=== PATIENT | male | born 1960 | race African-American/Black ===

== ENCOUNTER 2024-01-30 14:56 | Emergency (ER) | payer OTHER, MEDICAID ==
[~2024-01-30] VITALS: Ht 195.6 cm; Wt 113.1 kg
[2024-01-30 15:33] VITALS: BP 147/89; PULSE 99; RESP 16; TEMP 99; O2SAT 97
== END 2024-01-30 15:50 | disposition home or self-care (01) ==
LOC: ER 14:56
DX: Z87.821 Personal history of retained foreign body fully removed (principal)